=== PATIENT | female | born 1990 | race Caucasian/White ===

== ENCOUNTER 2017-11-20 16:15 | Emergency (ER) | payer OTHER ==
[~2017-11-20] VITALS: Ht 177.8 cm; Wt 136.1 kg
[~2017-11-20 16:15] MED LIST: ACETAMINOPHEN/H1 TAB PO; MOTRIN 800MG T800 MG PO; PRENATAL1 TA2 PO
[2017-11-20 16:31] VITALS: BP 136/84
--- NOTE | 2017-11-20 16:34 | ED GI/GU/ABDOMINAL COMPLAINT ---
History of Present Illness General Chief Complaint: Abdominal Pain/Flank Pain Stated Complaint: ABD PAIN X1HOUR Vital Signs & Intake/Output Vital Signs & Intake/Output Vital Signs Date Time Temp Pulse Resp B/P B/P Pulse O2 O2 Flow FiO2 Mean Ox Delivery Rate 11/20 1631 97.7 106 18 136/84 97 Room Air Allergies Coded Allergies: MDX - Shellfish (SHELLFISH) (HIVES 01/20/15) Reconcile Medications HYDROCODONE/ACETAMINOPHEN (Hydrocodon-Acetaminophen 5-325) 1 TAB TAB 1 TAB PO Q4P PRN PAIN MILD TO MODERATE PNV95/FERROUS FUMARATE/FA ( Formula Tablet) 1 TAB TAB 1 TAB PO DAILY (Reported) Yibuprofen (Motrin 800MG Tab) 800 MG TAB 800 MG PO Q6P PRN PAIN SCALE 4-6 Triage Note: PT STATES SHE HAD SEVERE STOMACH PAIN THAT LASTED AN HOUR. PT STATES THE PAIN IS SUBSIDING NOW. PT REPORTS 2 DAYS OF DIARRHEA. PT STATES NO DIARRHEA TODAY. PT STATES LOWER ABD PAIN "LIKE CRAMPING" PT STATES SHE HAS 1.5 WEEKS UNTIL HER PERIOD. PT STATES THERE IS NO CHANCE SHE COULD BE Past History Travel History Traveled to [place] past 21 day No Medical History Neurological: migraine Endocrine: PCOS Psychosocial History What is your primary language Turkmen Tobacco Use: Never used ETOH Use: denies use Illicit Drug Use: denies illicit drug use Progress Plan of Care: Orders Procedure Date/time Status LACTIC ACID 11/20 1930 Active URINE 11/20 1630 Active URINALYSIS 11/20 1630 Active LIPASE 11/20 1630 Active LACTIC ACID 11/20 1630 Active COMPREHENSIVE METABOLIC PANEL 11/20 1630 Active CBC WITHOUT DIFFERENTIAL 11/20 1630 Active Departure Departure Condition: Stable Referrals: Liliana Dow MD (PCP/Family) Departure Forms: Customer Survey General Discharge Information
--- NOTE | 2017-11-20 16:38 | ED GI/GU/ABDOMINAL COMPLAINT ---
History of Present Illness General Chief Complaint: Abdominal Pain/Flank Pain Stated Complaint: ABD PAIN X1HOUR Source: patient Exam Limitations: no limitations Vital Signs & Intake/Output Vital Signs & Intake/Output Vital Signs Date Time Temp Pulse Resp B/P B/P Pulse O2 O2 Flow FiO2 Mean Ox Delivery Rate 11/20 1641 98 11/20 1631 97.7 106 18 136/84 97 Room Air Allergies Coded Allergies: MDX - Shellfish (SHELLFISH) (HIVES 01/20/15) Reconcile Medications HYDROCODONE/ACETAMINOPHEN (Hydrocodon-Acetaminophen 5-325) 1 TAB TAB 1 TAB PO Q4P PRN PAIN MILD TO MODERATE PNV95/FERROUS FUMARATE/FA ( Formula Tablet) 1 TAB TAB 1 TAB PO DAILY (Reported) Yibuprofen (Motrin 800MG Tab) 800 MG TAB 800 MG PO Q6P PRN PAIN SCALE 4-6 Triage Note: PT STATES SHE HAD SEVERE STOMACH PAIN THAT LASTED AN HOUR. PT STATES THE PAIN IS SUBSIDING NOW. PT REPORTS 2 DAYS OF DIARRHEA. PT STATES NO DIARRHEA TODAY. PT STATES LOWER ABD PAIN "LIKE CRAMPING" PT STATES SHE HAS 1.5 WEEKS UNTIL HER PERIOD. PT STATES THERE IS NO CHANCE SHE COULD BE Triage Nurses Notes Reviewed? yes ? U Is pt currently ? No Onset: Abrupt Duration: hour(s): Timing: single episode today Location: LOWER ABD Radiation: no radiation Activities at Onset: none HPI: 27-year-old female comes into the emergency room with complaints of severe lower abdominal cramping that began prior to arrival about an hour. Pain was severe in nature. She comes in for further evaluation. Patient decided that she did not want to stay for treatment after screening evaluation in triage. She denies any fever chills vomiting. She reports that her pain is now getting better and she does not want stay. (Brody Weaver) Past History Travel History Traveled to [place] past 21 day No Medical History Any Pertinent Medical History? see below for history Neurological: migraine Endocrine: PCOS Surgical History Surgical History: Unknown Psychosocial History What is your primary language [place] Tobacco Use: Never used ETOH Use: denies use Illicit Drug Use: denies illicit drug use Family History Hx Contributory? No (Brody Weaver) Review of Systems Review of Systems Constitutional: Reports: no symptoms. EENTM: Reports: no symptoms. Respiratory: Reports: no symptoms. Cardiovascular: Reports: no symptoms. GI: Reports: see HPI. Genitourinary: Reports: see HPI. Musculoskeletal: Reports: no symptoms. Skin: Reports: no symptoms. Neurological/Psychological: Reports: no symptoms. Hematologic/Endocrine: Reports: no symptoms. Immunologic/Allergic: Reports: no symptoms. All Other Systems: Reviewed and Negative (Brody Weaver) Physical Exam Physical Exam General Appearance: no apparent distress, alert, awake, obese Head: atraumatic Eyes: Bilateral: normal appearance. Ears, Nose, Throat, Mouth: hearing grossly normal Neck: normal inspection Respiratory: no respiratory distress Gastrointestinal: unable to examine Back: normal range of motion Neurologic/Psych: awake, alert, oriented x 3, normal gait Core Measures ACS in differential dx? No Sepsis Present: No Sepsis Focused Exam Completed? No (Brody Weaver) Progress Differential Diagnosis: appendicitis, biliary colic, cholecystitis, diverticulitis, ectopic , gastritis, ischemic bowel, kidney stone, ovarian cyst, ovarian torsion, PUD/GERD, perforated viscous, SBO, threatened AB, UTI/pyelo Plan of Care: Orders Procedure Date/time Status LACTIC ACID 11/20 1930 Active URINE 11/20 1630 Active URINALYSIS 11/20 1630 Active LIPASE 11/20 1630 Active LACTIC ACID 11/20 1630 Active COMPREHENSIVE METABOLIC PANEL 11/20 1630 Active CBC WITHOUT DIFFERENTIAL 11/20 1630 Active Initial ED EKG: none (Brody Weaver) Departure Departure Disposition: LEFT AGAINST MEDICAL ADVICE Condition: Stable Clinical Impression Primary Impression: Abdominal pain Referrals: Liliana Dow MD (PCP/Family) Additional Instructions: You're leaving AGAINST MEDICAL ADVICE. It has been recommended that she stay here for further evaluation with blood work and possible diagnostic imaging. Cannot rule out any potential life-threatening condition. 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 Return if any other concerns. Please go over all results of today's visit with your primary care doctor. Contact your primary care doctor to let them know you were here in the emergency room. There may be nonspecific findings which may not be related to your visit today here in the emergency room but may require further evaluation and chronic monitoring by your primary care doctor. If you had a laceration today the chance of foreign body always remains. You should follow-up with your primary care doctor for recheck in 3-5 days for a wound check. If you had an x-ray done there is a chance that a fracture could have been missed on initial read and you should follow-up with your primary care doctor for repeat x-rays if symptoms persist. If your blood pressure was elevated here in the emergency room please have rechecked by her primary care doctor within the next 48 hours by your primary care doctor. If you were prescribed a narcotic here in the emergency room or any type of controlled substances you're not allowed to drive while taking this medication or operate any type of heavy machinery. Narcotics can make you feel lightheaded dizziness nausea and can cause constipation. 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 Thank you for choosing [facility] emergency room. Please return to the emergency room immediately if you have any other concerns worsening of symptoms. Departure Forms: Customer Survey General Discharge Information Comments 11/20/2017 4:45:23 PM Patient was seen in triage. A entire exam and history was not performed. Patient was seen as a screening process in triage AND it was determined that she was going to stay for blood work and possible diagnostic imaging. The patient then changed her mind and declined care and she wanted to leave. She signed out AMA. I was unable to obtain a full history and I was unable to do a entire physical exam on her. I explained to her that I cannot rule out any type of life-threatening conditions. Abdominal pain can Potentially be serious/life threatening. She should return to the emergency room immediately upon any worsening symptoms. 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 (Brody Weaver) PA/AQUARIUM SPECIALIST Co-Sign Statement Statement: ED Attending supervision documentation- [] I saw and evaluated the patient. I have also reviewed all the pertinent lab results and diagnostic results. I agree with the findings and the plan of care as documented in the PA's/AQUARIUM SPECIALIST's documentation. [X] I have reviewed the ED Record and agree with the PA's/AQUARIUM SPECIALIST's documentation. [] Additions or exceptions (if any) to the PAs/AQUARIUM SPECIALIST's note and plan are summarized below: [] (Tiffanie ALEJANDRO,Zak Rosales)
== END 2017-11-20 16:40 | disposition left against medical advice (07) ==
LOC: ERH 16:15
DX: R10.30 Lower abdominal pain, unspecified (principal)
CPT/HCPCS: 81025